=== PATIENT | male | born 1985 | race Caucasian/White ===

== ENCOUNTER 2016-09-27 10:33 | Emergency (ER) | payer SELFPAY ==
[~2016-09-27] VITALS: Ht 172.7 cm; Wt 80.0 kg
[2016-09-27 10:34] VITALS: BP 137/77; PULSE 79; RESP 15; TEMP 97.8; O2SAT 96
[2016-09-27] MEDS ORDERED: QUET300XR PO (11:02)
--- NOTE | 2016-09-27 11:19 | PD ---
HPI Chief Complaint: Medication Refill Request Time Seen by Provider: 11:17 Travel History International Travel<30 days: No Contact w/Intl Traveler<30days: No Traveled to known affect area: No History of Present Illness HPI 30-year-old male presents to the emergency department requesting a refill of his Seroquel. Patient states he has a history of bipolar disorder. He states he recently moved to the area does not have a primary care physician. He would also like to be placed on a different medication because he no longer has insurance and Seroquel is expensive. He denies any current suicidal or homicidal ideations. He has no other chronic medical problem. He denies any medical complaints at this time. History Social History Alcohol Use: No Tobacco Use: No Allergies-Medications (Allergen,Severity, Reaction): Coded Allergies: No Known Allergies (Unverified , 09/27/16) Reported Meds & Prescriptions Reported Meds & Active Scripts Active Reported Seroquel XR (Quetiapine Fumarate) 300 Mg Tab 300 Mg PO DAILY Review of Systems Except as stated in HPI: all other systems reviewed are Neg Physical Exam Narrative GENERAL: Well-developed well-nourished male patient ambulatory. Afebrile., SKIN: Warm and dry. HEAD: Normocephalic. Atraumatic. EYES: No scleral icterus. No injection or drainage. NECK: Supple, trachea midline. No JVD or lymphadenopathy. CARDIOVASCULAR: Regular rate and rhythm without murmurs, gallops, or rubs. RESPIRATORY: Breath sounds equal bilaterally. No accessory muscle use. Lungs sounds are clear to auscultation. MUSCULOSKELETAL: No cyanosis, or edema. Data Data Last Documented VS Vital Signs Date Time Temp Pulse Resp B/P Pulse Ox O2 Delivery O2 Flow Rate FiO2 09/27/16 10:34 97.8 79 15 137/77 96 MDM Medical Screen Exam Complete: Yes Emergency Medical Condition: No Differential Diagnosis Medication refill, bipolar disorder Narrative Course 30-year-old male presents to the emergency department requesting a refill of his Seroquel. He also would like to be placed on a different medication because Seroquel is expensive. He denies any medical complaints today. No emergent condition is and notify on today's exam. A medical screening exam was performed: At the time of evaluation the presenting medical condition was determined not to be of an emergent nature. The patient was given the option of receiving additional care, but declined. Patient was given options for additional community resources from which to obtain care. The Patient Has Been advised to seek medical attention for their presenting complaint. The patient has been advised to return to the ER at any time if an emergent condition develops. Primary Impression: Encounter for medical screening examination Condition: Stable Tila Pereira Sep 27, 2016 11:19
== END 2016-09-27 11:31 | disposition left against medical advice (07) ==
LOC: NEPB 10:33
DX: F31.9 Bipolar disorder, unspecified (principal)
CPT/HCPCS: 99281

== ENCOUNTER 2017-01-30 14:42 | Emergency (ER) | payer SELFPAY ==
[~2017-01-30] VITALS: Ht 172.7 cm; Wt 80.0 kg
[~2017-01-30 14:42] MED LIST: QUET300XR PO
[2017-01-30 14:43] VITALS: BP 124/60; PULSE 94; RESP 17; TEMP 98.7; O2SAT 96
--- NOTE | 2017-01-30 15:02 | PD ---
HPI Chief Complaint: Abdominal Pain Time Seen by Provider: 15:02 Travel History International Travel<30 days: No Contact w/Intl Traveler<30days: No Traveled to known affect area: No History of Present Illness HPI 31-year-old male presents to emergency department for evaluation of suprapubic abdominal pain, described as an ache" intermittently occurring for the last month. Patient states he has been experiencing decreased urinary output. States that when he strains for a bowel movement the discomfort is more pronounced. Denies any hematuria or medical. Denies any recent illnesses, fever, or chills. He has had no nausea or vomiting. He has no other symptoms to report. PFSH Past Medical History ADHD: Yes Diabetes: No Tetanus Vaccination: > 5 Years Influenza Vaccination: No Past Surgical History Surgical History: No Previous Surgery Social History Alcohol Use: No Tobacco Use: No Substance Use: No Allergies-Medications (Allergen,Severity, Reaction): Coded Allergies: No Known Allergies (Unverified , 01/30/17) Reported Meds & Prescriptions Reported Meds & Active Scripts Active Reported Seroquel XR (Quetiapine Fumarate) 300 Mg Tab 300 Mg PO DAILY Review of Systems Except as stated in HPI: all other systems reviewed are Neg Physical Exam Narrative GENERAL: Well-nourished male patient, ambulatory and in no acute distress SKIN: Focused skin assessment warm/dry. HEAD: Atraumatic. Normocephalic. EYES: Pupils equal and round. No scleral icterus. No injection or drainage. ENT: No nasal bleeding or discharge. Mucous membranes pink and moist. NECK: Trachea midline. No JVD. CARDIOVASCULAR: Regular rate and rhythm. No murmur appreciated. RESPIRATORY: No accessory muscle use. Clear to auscultation. Breath sounds equal bilaterally. GASTROINTESTINAL: Abdomen soft, nondistended. No visible or palpable bulges. Patient does report midline suprapubic tenderness to palpation. No guarding or rebound tenderness. Hepatic and splenic margins not palpable. MUSCULOSKELETAL: No obvious deformities. No clubbing. No cyanosis. No edema. NEUROLOGICAL: Awake and alert. No obvious cranial nerve deficits. Motor grossly within normal limits. Normal speech. PSYCHIATRIC: Appropriate mood and affect; insight and judgment normal. Data Data Last Documented VS Vital Signs Date Time Temp Pulse Resp B/P Pulse Ox O2 Delivery O2 Flow Rate FiO2 01/30/17 14:56 18 01/30/17 14:43 98.7 94 124/60 96 Room Air Orders Urinalysis - C+S If Indicated (01/30/17 15:07) Labs Laboratory Tests Test 01/30/17 15:25 Urine Color YELLOW Urine Turbidity CLEAR Urine pH 6.0 Urine Specific [place] 1.026 Urine Protein TRACE mg/dL Urine Glucose (UA) NEG mg/dL Urine Ketones NEG mg/dL Urine Occult Blood NEG Urine Nitrite NEG Urine Bilirubin NEG Urine Urobilinogen 2.0 MG/DL Urine Leukocyte Esterase NEG Urine RBC LESS THAN 1 /hpf Urine WBC 1 /hpf Urine Squamous Epithelial <1 /hpf Cells Urine Transitional Epithelial 1 /hpf Cells Urine Mucus MOD /lpf Microscopic Urinalysis Comment CULT NOT INDICATED MDM Medical Decision Making Medical Screen Exam Complete: Yes Emergency Medical Condition: Yes Medical Record Reviewed: Yes Differential Diagnosis UTI versus STD versus renal calculi versus constipation versus hernia versus colitis versus diverticulitis Narrative Course 31-year-old male presents to emergency department for evaluation of an abdominal discomfort intermittently occurring over the last month. Patient appears well and without distress. Abdominal exam is essentially benign with some midline suprapubic tenderness to palpation. Vital signs stable. Urinalysis is collected for evaluation. 1552 urinalysis results moderate mucus, otherwise unremarkable. I discussed the patient with my attending physician Dr. Alberto who also assessed the patient. Patient will be discharged time to return immediately with any acute worsening of symptoms. Diagnosis Primary Impression: Suprapubic discomfort Referrals: [facility] Primary Care Physician Patient Instructions: Abdominal Pain (ED), General Instructions Additional Instructions: Maintain adequate oral hydration Follow-up with your primary care provider Return immediately to the emergency department with any acute worsening symptoms Med/Other Pt SpecificInfo: No Change to Meds Disposition: 01 DISCHARGE HOME Condition: Stable Justine Corbett GILBERTO January 30, 2017 15:02
[2017-01-30 15:42] LABS: BLOOD, URINE NEG (NEG); COMMENT (UR) CULT NOT INDICATED; CULTURE IF INDICATED CULT NOT INDICATED; GLUCOSE,URINE NEG (NEG); KETONE, URINE NEG (NEG); MUCUS URINE MOD /lpf (OCC); NITRITE,URINE NEG (NEG); SQUAMOUS EPITHELIAL CELL URINE <1 /hpf (0-5); TRANSITIONAL EPI CELLS, URINE 1 /hpf; URINE COLOR YELLOW (YELLW/STRAW)
== END 2017-01-30 16:32 | disposition home or self-care (01) ==
LOC: NEPD 14:42
DX: R10.9 Unspecified abdominal pain (principal)
CPT/HCPCS: 81001; 99283

== ENCOUNTER 2017-09-21 00:56 | Emergency (ER) | payer SELFPAY ==
[~2017-09-21] VITALS: Ht 172.7 cm; Wt 75.0 kg
[2017-09-21 00:58] VITALS: BP 131/79; PULSE 82; RESP 16; TEMP 97.9; O2SAT 99
[2017-09-21] MEDS ORDERED: SODIUM CHLORIDE 0.9% FLUSH 10 ML FLUSH IVF PRN (01:45)
--- NOTE | 2017-09-21 01:50 | PD ---
HPI . Chest pain Chief Complaint: Chest Pain Time Seen by Provider: 01:30 Travel History International Travel<30 days: No Contact w/Intl Traveler<30days: No Traveled to known affect area: No History of Present Illness HPI 31-year-old male notes no slipping past medical history complains of having a strange feeling in his left anterior chest since earlier today. Patient cannot characterize the pain or discomfort further, and denies any associated symptoms including denies shortness of breath, nausea vomiting, radiation of pain, diaphoresis. Patient denies any known exacerbating relieving factors. Patient denies any change in exercise tolerance lately or recent upper respiratory infection. Patient also denies any confined travel, sedentary period, leg pain or edema. Patient has no family history of cardiac or chest pain. [facility] Past Medical History Narrative Medical Past medical history reviewed ADHD: Yes Diabetes: No Tetanus Vaccination: Unknown Influenza Vaccination: No Past Surgical History Surgical History: No Previous Surgery Social History Alcohol Use: No Tobacco Use: No Substance Use: No Allergies-Medications (Allergen,Severity, Reaction): Coded Allergies: No Known Allergies (Unverified Adverse Reaction, Unknown, 09/21/17) Reported Meds & Prescriptions Reported Meds & Active Scripts Active Reported Seroquel XR (Quetiapine Fumarate) 300 Mg Tab 300 Mg PO DAILY Narrative Medication Allergies and medications reviewed Review of Systems General / Constitutional: No: Fever Eyes: No: Visual changes HENT: No: Headaches Cardiovascular: Positive: Chest Pain or Discomfort, No: Palpitations, Irregular Rhythm, Tachycardia, Diaphoresis, Syncope, Dyspnea on exertion Respiratory: No: Shortness of Breath, Orthopnea, Hemoptysis, Stridor, Night Sweats, Pleuritic Pain Gastrointestinal: No: Abdominal Pain Genitourinary: No: Dysuria Musculoskeletal: No: Pain Skin: No Rash Neurologic: No: Weakness Psychiatric: No: Depression Endocrine: No: Polydipsia Hematologic/Lymphatic: No: Easy Bruising Physical Exam Narrative GENERAL: Awake and alert oriented 3 no acute distress. Vital signs normal and stable SKIN: Warm and dry. Color is normal no diaphoresis cyanosis or pallor HEAD: Atraumatic. Normocephalic. EYES: Pupils equal and round. No scleral icterus. No injection or drainage. ENT: No nasal bleeding or discharge. Mucous membranes pink and moist. NECK: Trachea midline. No JVD. Supple full range of motion no carotid bruits CARDIOVASCULAR: Regular rate and rhythm. S1-S2 no murmurs rubs or gallops RESPIRATORY: No accessory muscle use. Clear to auscultation. Breath sounds equal bilaterally. Chest wall nontender GASTROINTESTINAL: Abdomen soft, non-tender, nondistended. Hepatic and splenic margins not palpable. MUSCULOSKELETAL: Extremities without clubbing, cyanosis, or edema. No obvious deformities. NEUROLOGICAL: Awake and alert. No obvious cranial nerve deficits. Motor grossly within normal limits. Five out of 5 muscle strength in the arms and legs. Normal speech. PSYCHIATRIC: Appropriate mood and affect; insight and judgment normal. Data Data Last Documented VS Vital Signs Date Time Temp Pulse Resp B/P (MAP) Pulse Ox O2 Delivery O2 Flow Rate FiO2 09/21/17 00:58 97.9 82 16 131/79 (96) 99 Room Air Orders Orders Electrocardiogram (09/21/17 01:37) B-Type Natriuretic Peptide (09/21/17 01:37) Ckmb (Isoenzyme) Profile (09/21/17 01:37) Complete Blood Count With Diff (09/21/17 01:37) Comprehensive Metabolic Panel (09/21/17 01:37) D-Dimer (09/21/17 01:37) Magnesium (Mg) (09/21/17 01:37) Prothrombin Time / Inr (Pt) (09/21/17 01:37) Act Partial Throm Time (Ptt) (09/21/17 01:37) Troponin I (09/21/17 01:37) Chest, Single Ap (09/21/17 01:37) Ecg Monitoring (09/21/17 01:37) Bilateral Bp Monitoring (09/21/17 01:37) Iv Access Insert/Monitor (09/21/17 01:37) Oximetry (09/21/17 01:37) Oxygen Administration (09/21/17 01:37) Sodium Chloride 0.9% Flush (Ns Flush) (09/21/17 01:45) Westergren Sedimentation Rate (09/21/17 01:37) CKMB (09/21/17 01:40) CKMB% (09/21/17 01:40) Ibuprofen (Motrin) (09/21/17 03:00) Labs Laboratory Tests Test 09/21/17 01:40 White Blood Count 9.3 TH/MM3 Red Blood Count 4.87 MIL/MM3 Hemoglobin 14.9 GM/DL Hematocrit 42.5 % Mean Corpuscular Volume 87.3 FL Mean Corpuscular Hemoglobin 30.5 PG Mean Corpuscular Hemoglobin Concent 34.9 % Red Cell Distribution Width 12.4 % Platelet Count 275 TH/MM3 Mean Platelet Volume 8.5 FL Neutrophils (%) (Auto) 54.9 % Lymphocytes (%) (Auto) 33.3 % Monocytes (%) (Auto) 8.2 % Eosinophils (%) (Auto) 3.1 % Basophils (%) (Auto) 0.5 % Neutrophils # (Auto) 5.1 TH/MM3 Lymphocytes # (Auto) 3.1 TH/MM3 Monocytes # (Auto) 0.8 TH/MM3 Eosinophils # (Auto) 0.3 TH/MM3 Basophils # (Auto) 0.0 TH/MM3 CBC Comment DIFF FINAL Differential Comment Erythrocyte Sedimentation Rate 3 mm/hr Prothrombin Time 10.7 SEC Prothromb Time International Ratio 1.1 RATIO Activated Partial Thromboplast Time 28.1 SEC D-Dimer Quantitative (PE/DVT) LESS THAN 0.19 MG/L FEU Blood Urea Nitrogen 7 MG/DL Creatinine 1.15 MG/DL Random Glucose 77 MG/DL Total Protein 7.6 GM/DL Albumin 4.2 GM/DL Calcium Level 8.9 MG/DL Magnesium Level 2.0 MG/DL Alkaline Phosphatase 87 U/L Aspartate Amino Transf (AST/SGOT) 18 U/L Alanine Aminotransferase (ALT/SGPT) 40 U/L Total Bilirubin 0.8 MG/DL Sodium Level 141 MEQ/L Potassium Level 3.4 MEQ/L Chloride Level 106 MEQ/L Carbon Dioxide Level 28.1 MEQ/L Anion Gap 7 MEQ/L Estimat Glomerular Filtration Rate 75 ML/MIN Total Creatine Kinase 176 U/L Creatine Kinase MB LESS THAN 0.5 NG/ML Troponin I LESS THAN 0.02 NG/ML MDM Medical Decision Making Medical Screen Exam Complete: Yes Emergency Medical Condition: Yes Medical Record Reviewed: Yes Differential Diagnosis Chest pain, atypical chest pain, pericarditis, myocarditis, pleurisy Narrative Course EKG normal sinus rhythm at 67 bpm with mild sinus arrhythmia, nonspecific ST changes in the precordium with J-point elevation All laboratory examinations reviewed, no significant abnormalities. Patient's troponin is normal, CPK is normal, sedimentation rate is normal, with blood cell count is normal. Chest x-ray no significant abnormalities. Diagnosis Primary Impression: Atypical chest pain Patient Instructions: Chest Pain (ED), General Instructions Additional Instructions: Follow-up with your doctor/facility clinic. Recommend further outpatient workup with symptoms persist. Return for worsening Disposition: 01 DISCHARGE HOME Condition: Stable Ismael Walter MD Sep 21, 2017 01:50
[2017-09-21 01:56] LABS: AUTOMATED NEUTROPHIL # 5.1 TH/MM3 (1.8-7.7); BASOPHIL % 0.5 % (0.0-2.0); EOSINOPHIL # 0.3 TH/MM3 (0-0.4); EOSINOPHIL % 3.1 % (0.0-4.0); HEMATOCRIT 42.5 % (39.0-51.0); HEMOGLOBIN 14.9 GM/DL (13.0-17.0); LYMPH % 33.3 % (9.0-44.0); LYMPHOCYTE # 3.1 TH/MM3 (1.0-4.8); MEAN CELL VOLUME 87.3 FL (80.0-100.0); MEAN CORPUSCULAR HEMOGLOBIN 30.5 PG (27.0-34.0); MEAN CORPUSCULAR HGB CONC 34.9 % (32.0-36.0); MEAN PLATELET VOLUME 8.5 FL (7.0-11.0); MONO % 8.2 % (0.0-8.0); MONOCYTE # 0.8 TH/MM3 (0-0.9); NEUT % 54.9 % (16.0-70.0); PLATELET COUNT 275 TH/MM3 (150-450); RED BLOOD COUNT 4.87 MIL/MM3 (4.50-5.90); RED CELL DISTRIBUTION WIDTH 12.4 % (11.6-17.2); WHITE BLOOD COUNT 9.3 TH/MM3 (4.0-11.0)
--- NOTE | 2017-09-21 02:03 | RADRPT ---
EXAM DATE/TIME: 09/21/2017 01:42 [facility] COMPARISON: No previous studies available for comparison. INDICATIONS : Chest pain. MEDICAL HISTORY : None. SURGICAL HISTORY : None. ENCOUNTER: Initial ACUITY: 1 day PAIN SCORE: 6/10 LOCATION: Bilateral chest FINDINGS: A single view of the chest demonstrates the lungs to be symmetrically aerated without evidence of mas s, infiltrate or effusion. The cardiomediastinal contours are unremarkable. Osseous structures are intact. CONCLUSION: Normal examination for a patient of this age. Cesar Varela MD on September 21, 2017 at 2:00 Board Certified Radiologist. This report was verified electronically.
[2017-09-21 02:08] LABS: INTERNATIONAL NORMALIZED RATIO 1.1 RATIO; PROTHROMBIN TIME - PATIENT 10.7 SEC (9.8-11.6)
[2017-09-21 02:19] LABS: ALBUMIN 4.2 GM/DL (3.4-5.0); ALT (GPT) 40 U/L (12-78); AST (GOT) 18 U/L (15-37); BICARBONATE 28.1 MEQ/L (21.0-32.0); BLOOD UREA NITROGEN 7 MG/DL (7-18); CALCIUM 8.9 MG/DL (8.5-10.1); CHLORIDE 106 MEQ/L (98-107); CREATININE 1.15 MG/DL (0.60-1.30); GLOMERULAR FILTRATION RATE 75 ML/MIN (>89); GLUCOSE,RANDOM 77 MG/DL (74-106); SODIUM (NA) 141 MEQ/L (136-145)
[2017-09-21 02:23] LABS: ALKALINE PHOSPHATASE 87 U/L (45-117); TOTAL BILIRUBIN ADULT 0.8 MG/DL (0.2-1.0); TOTAL PROTEIN 7.6 GM/DL (6.4-8.2); TROPONIN I LESS THAN 0.02 NG/ML (0.02-0.05)
[2017-09-21 02:26] LABS: D-DIMER LESS THAN 0.19 MG/L FEU (0.00-0.50)
[2017-09-21] MEDS ORDERED: MEDR4PAK PO (02:53)
[2017-09-21] MEDS ORDERED: IBUPROFEN 400 MG TAB PO ONE (03:00)
--- NOTE | 2017-09-21 17:10 | EKG ---
Date Performed: 09/21/2017 Time Performed: 01:42:20 PTAGE: 31 years EKG: Sinus rhythm WITH SINUS ARRHYTHMIA NONSPECIFIC T-WAVE ABNORMALITY BORDERLINE ECG NO PREVIOUS TRACING DOCTOR: Chris Gurrola Interpretating Date/Time 09/21/2017 17:09:17
== END 2017-09-21 03:12 | disposition home or self-care (01) ==
LOC: NEPE 00:56
DX: R07.89 Other chest pain (principal); I49.8 Other specified cardiac arrhythmias; R94.31 Abnormal electrocardiogram [ECG] [EKG]; F90.9 Attention-deficit hyperactivity disorder, unspecified type; Z79.899 Other long term (current) drug therapy
CPT/HCPCS: 71045; 80053; 82550; 82552; 83735; 83880; 84484; 85025; 85379; 85610; 85652; 85730; 93005; 99285